=== PATIENT | female | born 1950 | race Caucasian/White ===

== ENCOUNTER 2016-12-10 06:22 | Day surgery (SDC) | payer OTHER, MEDICARE ==
[~2016-12-10 06:22] MED LIST: Lactated Ringers 1,000 ML IV SCH
[2016-12-10] MEDS ORDERED: fentaNYL 100 MCG/2 ML SDV ONE (08:13)
[2016-12-10] MEDS ORDERED: Propofol 200 MG/20 ML SDV ONE (08:13)
[2016-12-10 08:55] VITALS: BP 135/56
--- NOTE | 2016-12-10 12:04 | OR ---
DATE OF SURGERY: 12/10/2016. REFERRING PROVIDER: Lesa Thomas MD. PRE-OPERATIVE DIAGNOSES: Positive Fit stool card. This is the patient's first colonoscopy. Although it sounds like she had a sigmoidoscopy years ago. There is a family history of an aunt with colon cancer. POST-OPERATIVE DIAGNOSES: Minimal diverticulosis otherwise normal colon. PROCEDURE: Colonoscopy. SURGEON: Pratik Rivero M.D. ANESTHESIA: Monitored anesthesia care. BOWEL PREP: Good. DESCRIPTION OF OPERATION: Marilin is a 66-year-old female. The patient was brought to the endoscopy suite after discussing risks and benefits of the procedure. Informed consent was obtained for conscious sedation and colonoscopy with or without biopsy and/or polypectomy. We also discussed possibility of missed lesions. Pre-procedure exam was unremarkable. IV, oxygen, and monitors were placed. The patient was placed in the left lateral decubitus position. Sedation was administered and a digital rectal exam performed and unremarkable. Colonoscope was passed into the rectum and slowly advanced all the way to the cecum. Cecum was viewed and photographed. The colonoscope was slowly withdrawn and the mucosa was closed observed in a direct circumferential manner. Ascending colon was unremarkable except for some diverticula within the cecum. Transverse colon was unremarkable. Descending colon was unremarkable. Sigmoid colon unremarkable. Retroflexion was performed. Rectal mucosa was unremarkable. Scope was removed. The patient tolerated the procedure well. The patient was monitored until that baseline status. Discharge instructions were reviewed and the patient was discharged in good condition. COMPLICATIONS: None. TOTAL TIME: 13 minutes. ESTIMATED BLOOD LOSS: None. RECOMMENDATIONS/FOLLOW-UP: Recommend repeat colonoscopy in 10 years. I would like to kindly thank Lesa Thomas MD, for this referral. DMB: 12/10/2016 08:41:07 MODL: 12/10/2016 11:43:11 /[id number]
== END 2016-12-10 09:54 | disposition home or self-care (01) ==
LOC: VM.SDS 06:22
PROVIDERS: ATTEND Family Medicine
DX: K57.30 Diverticulosis of large intestine without perforation or abscess without bleeding (principal); Z80.0 Family history of malignant neoplasm of digestive organs
CPT/HCPCS: 00810; 45378; 82962; J2704; J3010; J7120